=== PATIENT | female | born 1940 | race Caucasian/White ===

== ENCOUNTER → 2023-07-13 06:00 | Outpatient (REF) | payer OTHER, SELFPAY ==
[2023-07-13 16:55] LABS: Urine Albumin Trace (Neg - Trace); Urine Bilirubin Negative (Negative); Urine Character Clear (Clear); Urine Color Yellow; Urine Glucose Negative (Negative); Urine Ketone Negative (Negative); Urine Leukocyte 2+ (Negative); Urine Nitrite Negative (Negative); Urine Occult Blood 4+ (Negative); Urine Urobilinogen Negative (Neg - 1+)
[2023-07-13 17:07] LABS: Urine Squamous Cell 0-2 /LPF (Few)
[2023-07-13 17:09] LABS: Urine Bacteria Moderate (Negative); Urine White Cell >100 /HPF (0-5)
== END ==
LOC: OLABPV 06:00
PROVIDERS: ATTENDING PHYSICIAN Internal Medicine Geriatric Medicine
DX: R31.9 Hematuria, unspecified (principal)
CPT/HCPCS: 81003; 81015

== ENCOUNTER → 2024-04-19 10:44 | Outpatient (REF) | payer OTHER, SELFPAY ==
[2024-04-19 11:35] LABS: Urine Albumin Negative (Neg - Trace); Urine Bilirubin Negative (Negative); Urine Character Clear (Clear); Urine Color Yellow; Urine Glucose Negative (Negative); Urine Ketone Negative (Negative); Urine Leukocyte Negative (Negative); Urine Nitrite Negative (Negative); Urine Occult Blood Negative (Negative); Urine Urobilinogen Negative (Neg - 1+)
[2024-04-19 11:36] LABS: % Basophils 0.5 % (0-2); % Eosinophils 1.9 % (0-6); % Immature Granulocytes 0.3 % (0-0.5); % Monocytes 8.5 % (1.7-9.3); % Neutrophils 61.8 % (42.2-75.2); Absolute Eosinophils 0.1 10^3/uL (0-0.7); Absolute Lymphocytes 1.6 10^3/uL (1.2-3.4); Absolute Monocytes 0.5 10^3/uL (0.1-0.6); Absolute Neutrophils 3.6 10^3/uL (1.4-6.5); Hematocrit 36.2 % (37.0-47.0); Hemoglobin 12.4 g/dL (12.0-16.0); Mean Corp Hgb Conc. 34.3 g/dL (33.0-37.0); Mean Corpuscular Hgb 33.1 pg (27.0-31.0); Mean Corpuscular Volume 96.5 fL (81.0-99.0); Mean Platelet Volume 11.9 fL (7.4-10.4); Nucleated Red Blood Cells % 0 %; Platelet Count 200 10^3/uL (130-400); Red Blood Cell Count 3.75 10^6/uL (4.20-5.40); Red Cell Dist. Width 13.6 % (11.5-14.5); White Blood Cell Count 5.9 10^3/uL (4.8-10.8)
[2024-04-19 12:08] LABS: ALT (SGPT) 22 U/L (0-35); AST (SGOT) 35 U/L (14-36); Albumin 4.9 g/dl (3.5-5.0); Alkaline Phosphatase 57 U/L (38-126); Blood Urea Nitrogen 18 mg/dl (7-17); Calcium 10.1 mg/dl (8.4-10.2); Carbon Dioxide 21 mmol/L (22-30); Chloride 104 mmol/L (98-107); Glucose 102 mg/dl (70-99); HDL Cholesterol 79 mg/dl; LDL Cholesterol, Calculated 93 mg/dl; Potassium 4.4 mmol/L (3.5-5.1); Sodium 142 mmol/L (135-145); Total Bilirubin 0.5 mg/dl (0.2-1.3); Total Cholesterol 185 mg/dl (50-199); Total Protein 7.7 g/dl (6.3-8.2); Triglyceride 65 mg/dl (10-149); Very Low Density Lipoprotein 13 mg/dl (0-30); eGFR > 60.00
[2024-04-19 12:50] LABS: Folate > 20.0 ng/ml (2.76-20); Vitamin B12 > 1000 pg/ml (239-931)
== END ==
LOC: OLABPV 10:44
PROVIDERS: ATTENDING PHYSICIAN Internal Medicine Geriatric Medicine
DX: E78.2 Mixed hyperlipidemia (principal); I10 Essential (primary) hypertension; E55.9 Vitamin D deficiency, unspecified; L82.1 Other seborrheic keratosis; I70.0 Atherosclerosis of aorta; Z13.89 Encounter for screening for other disorder; R10.9 Unspecified abdominal pain; R35.0 Frequency of micturition
CPT/HCPCS: 36415; 80053; 80061; 81003; 82607; 82746; 85025

== ENCOUNTER 2024-05-18 11:34 | Inpatient (IN) | payer OTHER, SELFPAY ==
[2024-05-16] VITALS (8 sets, daily range): BP systolic 130–155; BP diastolic 55–86; BMI 28.9
[2024-05-16 16:11] LABS: % Basophils 0.3 % (0-2); % Immature Granulocytes 0.5 % (0-0.5); % Lymphocytes 6.8 % (20.5-51.1); % Monocytes 1.4 % (1.7-9.3); Absolute Lymphocytes 0.6 10^3/uL (1.2-3.4); Absolute Monocytes 0.1 10^3/uL (0.1-0.6); Absolute Neutrophils 8.1 10^3/uL (1.4-6.5); Hematocrit 37.5 % (37.0-47.0); Hemoglobin 12.9 g/dL (12.0-16.0); Mean Corp Hgb Conc. 34.4 g/dL (33.0-37.0); Mean Corpuscular Hgb 32.7 pg (27.0-31.0); Mean Corpuscular Volume 95.2 fL (81.0-99.0); Mean Platelet Volume 10.8 fL (7.4-10.4); Nucleated Red Blood Cells % 0 %; Platelet Count 184 10^3/uL (130-400); Red Blood Cell Count 3.94 10^6/uL (4.20-5.40); Red Cell Dist. Width 13.2 % (11.5-14.5); White Blood Cell Count 8.9 10^3/uL (4.8-10.8)
[2024-05-16 16:27] LABS: ALT (SGPT) 24 U/L (0-35); AST (SGOT) 36 U/L (14-36); Alkaline Phosphatase 71 U/L (38-126); Blood Urea Nitrogen 21 mg/dl (7-17); Calcium 9.7 mg/dl (8.4-10.2); Carbon Dioxide 20 mmol/L (22-30); Chloride 103 mmol/L (98-107); Glucose 147 mg/dl (70-99); Lipase 99 U/L (23-300); Potassium 3.8 mmol/L (3.5-5.1); Sodium 137 mmol/L (135-145); Total Bilirubin 0.6 mg/dl (0.2-1.3); Total Protein 7.9 g/dl (6.3-8.2); eGFR > 60.00
[2024-05-16] MEDS: NSS 500 IV (16:53)
[2024-05-16] MEDS: ATIVAN 0.5 MG IV (16:54)
[2024-05-16] MEDS: ZOFRAN 4 MG IV (16:54)
--- NOTE | 2024-05-16 17:38 | ED.GENMED ---
History of Present Illness
General
Chief Complaint: Abdominal Symptoms
Source: patient
Exam Limitations: none
Time Seen by Provider: 05/16/24 15:31
Nursing documentation reviewed up to this point in time: agreed with
History of Present Illness
History of Present Illness:
Patient is an 83-year-old female presents to the emergency department with nausea and vomiting secondary to vertigo. Patient started with mild vertigo this morning and became much worse this afternoon. Patient denies any headache, visual or speech
difficulties. Patient states the room is spinning about. Patient had a similar episode in 2018 and it seemed to get better with Antivert. Patient denies any recent illnesses or injuries. Patient denies any chest pain, shortness of breath or
palpitations. Patient denies abdominal pain but admits to nausea and vomiting. Patient denies any diarrhea, melena or hematochezia. Patient denies focal weakness, numbness or paresthesias. Patient denies any decreased hearing, tinnitus.
Past History
Past History
ED Past Medical History: HTN and Other (Kidney stones, vertigo)
Social History
Tobacco: Non-smoker
Review of Systems
Review of Systems
All Other Systems: ROS reviewed and negative except as documented in HPI and ROS
Constitutional: Reports fatigue; Denies fever or chills
EENT: Reports no symptoms
Respiratory: Reports no symptoms
Cardiac: Reports no symptoms
ABD/GI: Reports nausea, vomiting and anorexia; Denies abdominal pain, diarrhea or constipated
: Reports no symptoms
Musculoskeletal: Reports no symptoms; Denies neck pain
Skin: Reports no symptoms
Neurological: Reports dizzy; Denies headache, weakness or numbness
Hematologic/Lymphatic: Reports no symptoms
Phy Exam
Physical Exam
Physical Exam:
Physical Exam
General: Significant distress, alert and appropriate, well nourished, well hydrated
HENT: Normocephalic, supple with no lymphadenopathy, no thyromegaly
Eyes: Clear sclera, conjuctiva without injection, VF's intact, EOMI, no nystagmus
Heart: Regular rhythm and rate. No S3, S4. No murmur. No NVD, bruit
Lungs: No respiratory distress, no stridor, lung sounds clear and equal bilaterally
Abdomen: Soft, nontender, no organomegaly, BS good
Neuro: Alert and oriented x 3, CN II - XII intact, no motor focality, no cerebellar dysfunction
Skin: no rash
Psychiatric: well kept. interactive and cooperative
Extremities: No edema, cyanosis, tenderness
Course
Orders/Labs/Results
Orders:
Orders
05/16/24 Breakfast
Clear Liquid
At Your Request: Full Participation
Does patient need a safe tray?: No
05/16/24 15:15
Electrocardiogram (*1) Urgent
Reason for Study: Abdominal Pain
EKG- Treatment ONCE
05/16/24 16:00
Complete Blood Count/With Diff Urgent
Comprehensive Metabolic Panel Urgent
Lipase Urgent
05/16/24 16:47
0.9% Sodium Chloride 500 ml [Nss] 500 ml IV BOLUS
Lorazepam [Ativan] 0.5 mg IV NOW STA
Ondansetron Injectable [Zofran] 4 mg IV NOW STA
05/16/24 16:48
CT Head W/o Iv Contrast Urgent
Comment:
Reason For Exam: vertigo
05/16/24 19:26
Admit/Transfer Patient As Directed
Co-Sign Provider:
Level of Care: Observation services
Assign to:: Medical/Surgical
Physician / Group: Htay
Diagnosis: Vertigo
05/16/24 19:27
Code Status As Directed
Resuscitation Status: Full Code
PRN Pain Medication Management As Directed
May give lesser potent ordered pain med per pt: Yes
preference::
Protocol:: Medication orders for pain may be administered in a
manner that supports deferring to patient preference
when the pt is:
- Requesting an ordered lesser potent pain medication.
Least to most potent pain medications are defined
as: acetaminophen < NSAID < tramadol < opioids
(morphine, oxycodone, hydromorphone).
- Requesting a lesser dose of the same medication IF
ORDERED.
- Requesting a less intrusive route of administration
if both routes are prescribed by the provider (PO <
IV).
05/16/24 20:32
0.9% Sodium Chloride 1000 ml [Nss] 1,000 ml IV 80 mls/hr
Acetaminophen [Tylenol] 650 mg PO Q4HPRN PRN
Meclizine [Antivert] 25 mg PO Q8HPRN PRN
diazePAM [Valium Injection] 2 mg IV Q6HPRN PRN
05/16/24 20:32
Activity As Directed
Activity Level: Out of Bed-Early Mobility
With Assistance
Advance Diet as Tolerated As Directed
Goal Diet: Regular
Pneumatic Compression Sleeves As Directed
Type: Knee high
Vital Signs As Directed
Frequency: Per unit guidelines
Ot Eval And Treat Routine
Pt Eval And Treat Routine
Activity Level: Out of Bed-Early Mobility
DX Deep Vein Thrombosis Video Routine
Abnormal Lab Results
05/16/24
16:00
RBC 3.94 L 10^6/uL
(4.20-5.40)
MCH 32.7 H pg
(27.0-31.0)
MPV 10.8 H fL
(7.4-10.4)
Absolute Neuts (auto) 8.1 H 10^3/uL
(1.4-6.5)
Absolute Lymphs (auto) 0.6 L 10^3/uL
(1.2-3.4)
Neutrophils % 91.0 H %
(42.2-75.2)
Lymphocytes % 6.8 L %
(20.5-51.1)
Monocytes % 1.4 L %
(1.7-9.3)
Carbon Dioxide 20 L mmol/L
(22-30)
BUN 21 H mg/dl
(7-17)
Creatinine 0.5 L mg/dL
(0.6-1.0)
Glucose 147 H mg/dl
(70-99)
05/16/24 16:00
05/16/24 16:00
Vital Signs
Initial and Last Documented VS:
Initial Vital Signs
Temp Pulse Resp BP Pulse Ox
97.8 F 76 16 155/67 99
05/16/24 15:11 05/16/24 15:11 05/16/24 15:11 05/16/24 15:11 05/16/24 15:11
Last Documented Vital Signs
Temp Pulse Resp BP Pulse Ox
97.9 F 66 16 142/66 100
05/16/24 20:30 05/16/24 20:30 05/16/24 20:30 05/16/24 20:30 05/16/24 20:30
*Radiology
Radiology exam reviewed: radiology read reviewed (nad)
*Pulse Oximetry
Patient hypoxic: no
*EKG
Interpreted by ED Provider?: Yes
EKG Intrepretation Date: 05/16/24
EKG Intrepretation Time: 18:41
Interpretation: abnormal
Comparison EKG: no comparison EKG present
Heart Rate: 71
Rate: normal
Rhythm: sinus
[place]: left axis deviation
Interval: normal NV interval and long QT
QRS Pattern: right bundle branch block
Ischemia: no ischemia
*Building Services Supervisor Interpretation
Rate: normal
Interpretation: normal
Heart Rate: 76
Rhythm: sinus
*Critical Care Note
Total Time (30-74mins, 75-104mins- exclusive of procedures): Not Applicable
Update Note
Update Note:
Patient is feeling better but still mildly dizzy. Labs are unremarkable as is the CT. Patient is unsteady. Patient lives alone. Patient will be admitted.
ED Attending Note
-
Portions of this chart may have been created with voice recognition software.� Occasional wrong word or��sound alike� substitutions may have occurred due to the inherent limitations of voice recognition software.
Discharge Plan
Departure
Patient Disposition: Admit
Date of Disposition: 05/16/24
Time of Disposition: 19:05
Admit to: Med/Surg
Admit to doctor: Hospitalist
Presentation/result/management discussed w/ accepting MD/DO: Hospitalist
Patient with high blood pressure during this ER visit?: No
Condition: Fair
Covid-19: Not Applicable
Discharge Problem:
Vertigo, Ambulatory dysfunction
Interventions
Interventions:
*Risk Screen - Suicide Last Done: 05/16/24 15:11
*General Assessment Last Done: 05/16/24 15:11
*Neglect/Abuse Screening Last Done: 05/16/24 15:11
ED- Fall Risk Assessment Last Done: 05/16/24 20:39
*ED COVID-19 Vaccine History Last Done: 05/16/24 15:11
*Nursing Disposition Last Done: 05/16/24 20:39
ZI-Refotp-Vezfgjtkps Assessment Last Done: 05/16/24 15:58
Discharge Date and Time
Discharge Date/Time: 05/16/24 20:40
--- NOTE | 2024-05-16 19:25 | HPS.HSE ---
Family Physician
-
Family Physician: Anthony Hardwick
Chief Complaint
-
Vertigo
History of Present Illness
Patient is an 83 y/o female past medical history of hypertension, and hyperlipidemia who presents with vertigo. Patient reports she was feeling a little off last week, for which she took a dose of meclizine and symptoms resolved. Today after her
taking her usual morning medications she started feeling a little off again. She took meclizine, but states it did not help this time and symptoms continued to worsen over the coarse of the day. She describes a spinning sensation that is worse
with movement and now is to the point she can not open her eyes without feeling dizzy. She reports associated nausea and vomiting. She reports requiring hospitalization for severe vertigo one other time several years ago.
Medical History
Past Medical History
Past Medical History: Reports Other
Additional Past Medical History:
Essential Hypertension
Hyperlipidemia
Nephrolithiasis
Past Surgical History: Reports None
Social History
Tobacco: Non-smoker
Alcohol: Occasional
Living: Alone (Independent at [facility])
Family History
Family History: Not pertinent
Allergies / Home Medications
Allergies reflects when Allergies were last updated in flux - [facility].
Home Medications with original date entered in flux - [facility]
Allergy/Medication List:
Allergies
Allergy/AdvReac Type Severity Reaction Status Date / Time
No Known Allergies Allergy Unverified 05/16/24 15:58
Home Medications
atorvastatin 10 mg tablet 10 mg PO DAILY 05/16/24
meclizine 12.5 mg tablet 12.5 mg PO DIRECTED PRN dizziness 05/16/24
nifedipine 30 mg tablet,extended release 30 mg PO DAILY 05/16/24
Review of Systems
-
A 12 point ROS was completed and negative except as noted: Yes
Constitutional: Denies Fever or Chills
EENT: Reports Other (No tinnitus or changes in hearing); Denies Sore Throat or Runny Nose
Respiratory: Denies Cough or Trouble Breathing
Physical Exam
Vital Signs
Vital Signs
Temp Pulse Resp BP Pulse Ox
97.8 F 71 16 131/56 97
05/16/24 15:11 05/16/24 18:17 05/16/24 16:00 05/16/24 18:17 05/16/24 18:17
Physical Exam
General: Well Developed, Well Nourished and Other (Kept eyes close during my evaluation due to symptoms)
HEENT: NormoCephalic, Atraumatic and Other (Horizontal nystagmus)
Respiratory: Clear and Non Labored Respirations
Cardiac: S1/S2 and Regular Rhythm
GI: Soft and Non Tender
Musculoskeletal: No Clubbing, No Cyanosis and No Edema
Skin: Warm and Dry
Neuro: Awake, Alert, Oriented and Nonfocal/grossly intact
Psych: Calm
Laboratory Results
-
05/16/24 16:00
05/16/24 16:00
Laboratory Results
Total Bilirubin 0.6 mg/dl (0.2-1.3) 05/16/24 16:00
AST 36 U/L (14-36) 05/16/24 16:00
ALT 24 U/L (0-35) 05/16/24 16:00
Alkaline Phosphatase 71 U/L (38-126) 05/16/24 16:00
Lipase 99 U/L (23-300) 05/16/24 16:00
Data Reviewed
-
CT Scan: Report Reviewed by me
Lab Data: Labs Reviewed by me
Impression/Plan
-
Intractable Vertigo, suspect BPPV
-Consult PT/OT for vestibular therapy
-Continue meclizine prn mild/moderate vertigo, and Valium for severe vertigo
Essential Hypertension
-Continue nifedipine with hold parameters
Hyperlipidemia
-Continue atorvastatin
DVT proph: SCDs
Code Status: Full Code
--- NOTE | 2024-05-16 19:32 | W.PN.UPDATE ---
Update Note
Progress Note Update
This note serves as an addendum to the H&P by sap crm developer SARAI Tiffanie ALLEN
HPI
83M Non smoker HX HTN , remote HX Vertigo ( 2018) seen at ER:
- acute onset of mild vertigo this morning and became much worse this afternoon.
- report the room is spinning about
- associated with N/ V
- denies any headache, visual or speech difficulties. .
HX similar episode in 2018 and it seemed to get better with Antivert.
Denies any recent illnesses or injuries.
Denies any chest pain, shortness of breath or palpitations.
Denies focal weakness, numbness or paresthesias. Patient denies any decreased hearing, tinnitus.
PHX
Vital Signs
Temp Pulse Resp BP Pulse Ox
97.8 F 71 16 131/56 97
05/16/24 15:11 05/16/24 18:17 05/16/24 16:00 05/16/24 18:17 05/16/24 18:17
PE
Gen: Significant distress but alert and appropriate
HEENT: anicteric , symmetric face, nl speech, non sustained weak horizontal nystagmus especially towards Lt latweral gaze . No diplopia
Neck: supple , no bruit
Lungs: CTA
Cor: RRR S1 S2 No murmur
Abdomen: Soft, nontender
SEISMIC PROSPECTING SUPERVISOR: AAO3 no motor focality, no cerebellar dysfunction
MS: no edema
Psych:
Abnormal Lab
05/16/24
16:00
RBC 3.94 L
MCH 32.7 H
MPV 10.8 H
Absolute Neuts (auto) 8.1 H
Absolute Lymphs (auto) 0.6 L
Neutrophils % 91.0 H
Lymphocytes % 6.8 L
Monocytes % 1.4 L
Carbon Dioxide 20 L
BUN 21 H
Creatinine 0.5 L
Glucose 147 H
Unremarkable CBC
CO2 20
BUN 21
nl Cr
EKG
NORMAL SINUS RHYTHM
RSR' OR QR PATTERN IN V1 SUGGESTS RIGHT VENTRICULAR CONDUCTION DELAY
MINIMAL VOLTAGE CRITERIA FOR LVH, MAY BE NORMAL VARIANT ( R in aVL )
NONSPECIFIC T WAVE ABNORMALITY
PROLONGED QT
ABNORMAL ECG
NO PREVIOUS ECGS AVAILABLE
HCT: No acute intracranial abnormality noted
ASSESSMENT & PLAN
Abrupt onset of Vertigo and N/V : Suspect BPPV
Mon sustained weak horizontal nystagmus especially towards Lt lateral gaze . No diplopia
Slowly improving with IV Ativan and Zofram
Associated with acute ambulatory dysfunction
- supportive care PRN Meclizine for mild symptoms or low dose Valium for servere
- Fall precaution
- IVF
- PT/OT for vestibular therapy
Benign HTN
- cont OP Meds
HLD on statin
DVT Px: SCD
Full code
Obs MS
[2024-05-16] MEDS: NSS 1000 IV (21:20)
--- NOTE | 2024-05-16 22:00 | PTCARENOTE ---
pt arrived from ED via stretcher, pt was pulled over from stretcher to bed d/t feeling too dizzy to ambulate. Pt AAOx3, Fluids (NS) started, vitals obtained and stable, oriented to room and call zambrano within reach. Will continue to monitor.
[2024-05-17 06:00] VITALS: BMI 29.2
--- NOTE | 2024-05-17 07:18 | CON.NEURO ---
Consultation
Order
Date of Consultation: 05/17/24
Requesting Provider: Foster Cuello MD
Reason for Consult: dizziness
Neurology Consultation Note.
HPI: This is an 83-year-old woman who presented to [facility] on 05/16/2024 with dizziness. According to the patient she developed intermittent vertigo, worse with movements associated with nausea, dry heaving and imbalance several
days ago. 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 She reports taking meclizine after her symptoms started but experienced no improvement, deciding to seek medical attention.
The patient is unsure of the exact trigger for the current vertigo episode but mentions that she got dressed, which involved moving and bending over. No reports of diplopia, dysarthria, weakness or sensory changes, tinnitus, fever, ear pain or head
trauma. The patient admits to mild cold cephalic pain. She has not eaten since yesterday morning.
ER VS: 155/67, 76, afebrile
EKG: NSR, QTc Int : 508 ms
PDMP: No recently prescribed medication
Labs: Glucose�147, normal WBCs, platelets, vitamin B12>1000, folate >20,
CT head wo contrast-mild subcortical, deep, and periventricular white matter low-attenuation
PMH: BPPV, HTN, DLP, nephrolithiasis, vitamin D deficiency, osteopenia
PSH: bilateral cataract extraction, tubal ligation, cystoscopy
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
FH: Father in his 80s from gastric cancer, mother in her 80s from coronary artery disease.
All:NKDA
ROS:Constitutional: Negative. Negative for chills, fever and unexpected weight change.
HENT: Positive for vertigo, chronic hearing impairment.
Eyes: Negative. Negative for photophobia, pain and visual disturbance.
Respiratory: Negative for cough, choking and shortness of breath.
Cardiovascular: Negative for chest pain, palpitations and leg swelling.
Gastrointestinal: Positive for nausea, vomiting
Endocrine: Negative. Negative for cold intolerance.
Genitourinary: Negative for dysuria, flank pain and urgency.
Musculoskeletal: Negative for back pain, gait problem, neck pain and neck stiffness.
Skin: Negative for rash.
Allergic/Immunologic: Negative. Negative for immunocompromised state.
Neurological: Positive for imbalance, hand tremor.
Psychiatric/Behavioral: Negative for behavioral problems, confusion and hallucinations.
General: Well developed. In no acute distress.
Cardio: Regular rate and rhythm without murmur. Extremities are without cyanosis or edema.
Neuro:
Mental Status: Alert, oriented to person, place, and date. Normal attention and recall. Good fund of knowledge. Follows complex requests across the midline. Comprehension, naming, and repetition intact.
Cranial Nerves: .Pupils are equally round, surgical EOMs full. Visual gomez full to confrontation. No ptosis. No nystagmus. V1-V3 intact to light touch and pinprick bilaterally, symmetric. Face symmetric. Impaired hearing AU. The palate
elevated well. SCMs and traps 5/5. Tongue midline. No dysarthria.
Motor: Normal bulk and tone. No pronator or arm drift. Strength 5/5 throughout. No clonus.
Reflexes: 2+ throughout the upper extremities and knees. Plantar responses flexor bilaterally.
Sensory: Normal vibration and JPS at the toes
Coordination: No dysmetria, L>R intention kinetic hand tremor
Gait: deferred
BL pes cavus
Assessment and Plan:
I. BPPV
II. HTN
III. Bilateral intention kinetic hand tremor
-Telemetry monitoring
-PT
-Meclizine 25 mg Q8h PRN
-Diazepam 1-2 mg IV Q8h PRN
-Brain MRI wo betty
-Please check TFTs
-ENT consult(can be done as OP)
-DVT prophylaxis
I personally reviewed all radiology and labs along with past medical records pertinent to current medical problems. Total time spent in patient care is 60 minutes.
Thank you for allowing us to participate in the care of this patient. We will continue to follow. Please do not hesitate to contact us with any questions or concerns.
Subjective/Objective
Subjective Data
Date of Service: May 17, 2024
Objective Data
Vital Signs
Temp Pulse Resp BP Pulse Ox
36.5 C 68 18 132/56 97
05/16/24 23:00 05/16/24 23:00 05/16/24 23:00 05/16/24 23:00 05/16/24 23:00
Lab Results
05/16/24 16:00
05/16/24 16:00
Sodium 137 mmol/L (135-145) 05/16/24 16:00
Potassium 3.8 mmol/L (3.5-5.1) 05/16/24 16:00
BUN 21 mg/dl (7-17) H 05/16/24 16:00
Glucose 147 mg/dl (70-99) H 05/16/24 16:00
Calcium 9.7 mg/dl (8.4-10.2) 05/16/24 16:00
Patient Allergies
No Known Allergies Allergy (Unverified 05/16/24 15:58)
Medications
-
Active Medications
Generic Name Dose Route Start Last Admin
Trade Name Freq PRN Reason Stop Dose Admin
Acetaminophen 650 mg 05/16/24 20:32
Acetaminophen 325 Mg Tablet PO 06/13/24 20:31
Q4HPRN PRN
mild pain/ fever>100.5F
Atorvastatin Calcium 10 mg 05/17/24 08:00
Atorvastatin (Lipitor) 10 Mg Tablet PO 06/14/24 07:59
DAILY ANA
Diazepam 2 mg 05/16/24 20:32
Diazepam 10 Mg/2 Ml Inj IV 06/13/24 20:31
Q6HPRN PRN
severe vertigo
Sodium Chloride 1,000 mls @ 80 mls/hr 05/16/24 20:32 05/16/24 21:20
Nss IV 05/17/24 09:01 1,000 mls
.[id number] ANA Administration
Meclizine HCl 25 mg 05/16/24 20:32
Meclizine 25 Mg Tablet PO 06/13/24 20:31
Q8HPRN PRN
mild/moderate vertigo
Nifedipine 30 mg 05/17/24 08:00
Nifedipine 30 Mg Extended Release Tablet PO 06/14/24 07:59
DAILY ANA
Sodium Chloride 0 flush 05/16/24 21:00
Sodium Chloride 0.9% (Flush) Syringe IV 06/13/24 20:59
PER PROTOCOL ANA
Home Medications
�Medication �Instructions �Recorded
atorvastatin 10 mg tablet 10 mg PO DAILY 05/16/24
meclizine 12.5 mg tablet 12.5 mg PO DIRECTED PRN 05/16/24
dizziness
nifedipine 30 mg tablet,extended 30 mg PO DAILY 05/16/24
release
Vital Signs and Labs
-
Vital Signs and Labs:
Vital Signs
Temp Pulse Resp BP Pulse Ox
36.5 C 68 18 132/56 97
05/16/24 23:00 05/16/24 23:00 05/16/24 23:00 05/16/24 23:00 05/16/24 23:00
Lab Results
05/16/24 16:00
05/16/24 16:00
Sodium 137 mmol/L (135-145) 05/16/24 16:00
Potassium 3.8 mmol/L (3.5-5.1) 05/16/24 16:00
BUN 21 mg/dl (7-17) H 05/16/24 16:00
Glucose 147 mg/dl (70-99) H 05/16/24 16:00
Calcium 9.7 mg/dl (8.4-10.2) 05/16/24 16:00
Medications
-
Medications:
Generic Name Dose Route Start Last Admin
Trade Name Freq PRN Reason Stop Dose Admin
Acetaminophen 650 mg 05/16/24 20:32
Acetaminophen 325 Mg Tablet PO 06/13/24 20:31
Q4HPRN PRN
mild pain/ fever>100.5F
Atorvastatin Calcium 10 mg 05/17/24 08:00
Atorvastatin (Lipitor) 10 Mg Tablet PO 06/14/24 07:59
DAILY ANA
Diazepam 2 mg 05/16/24 20:32
Diazepam 10 Mg/2 Ml Inj IV 06/13/24 20:31
Q6HPRN PRN
severe vertigo
Sodium Chloride 1,000 mls @ 80 mls/hr 05/16/24 20:32 05/16/24 21:20
Nss IV 05/17/24 09:01 1,000 mls
.[id number] ANA Administration
Meclizine HCl 25 mg 05/16/24 20:32
Meclizine 25 Mg Tablet PO 06/13/24 20:31
Q8HPRN PRN
mild/moderate vertigo
Nifedipine 30 mg 05/17/24 08:00
Nifedipine 30 Mg Extended Release Tablet PO 06/14/24 07:59
DAILY ANA
Sodium Chloride 0 flush 05/16/24 21:00
Sodium Chloride 0.9% (Flush) Syringe IV 06/13/24 20:59
PER PROTOCOL ANA
Home Medications
-
Home Medications
atorvastatin 10 mg tablet 10 mg PO DAILY 05/16/24
meclizine 12.5 mg tablet 12.5 mg PO DIRECTED PRN dizziness 12/09/24
nifedipine 30 mg tablet,extended release 30 mg PO DAILY 05/16/24
[2024-05-17 07:48] VITALS: BP 137/64
[2024-05-17] MEDS: PROCARDIA XL (EXTENDED RELEASE) 30 MG PO (08:15)
[2024-05-17] MEDS: LIPITOR 10 MG PO (08:15)
[2024-05-17] MEDS: ANTIVERT 25 MG PO ×2 (08:24→21:59)
[2024-05-17 09:50] VITALS: BP 143/67; BP 172/70; PULSE 71; O2SAT 99
--- NOTE | 2024-05-17 10:02 | W.PN.HOSP.TC ---
Today's Communication/Plan
-
Brain MRI
Assessment / Plan
Assessment / Plan
Physical Exam
General: Well Developed, Well Nourished and Other (Kept eyes close during my evaluation due to symptoms)
HEENT: NormoCephalic, Atraumatic and Other (Horizontal nystagmus)
Respiratory: Clear and Non Labored Respirations
Cardiac: S1/S2 and Regular Rhythm
GI: Soft and Non Tender
Musculoskeletal: No Clubbing, No Cyanosis and No Edema
Skin: Warm and Dry
Neuro: Awake, Alert, Oriented and Nonfocal/grossly intact
Psych: Calm
# Intractable Vertigo, suspect BPPV
Less dizzy,
-Brain MRI
- consult neurology
-Consulted PT/OT for vestibular therapy
-Continue meclizine prn mild/moderate vertigo, and Valium for severe vertigo
#Essential Hypertension
-Continue nifedipine with hold parameters
#Hyperlipidemia
-Continue atorvastatin
DVT proph: SCDs, added SQ Heparin.
Code Status: Full Code
Total time spent to see the patient on the floor, examine the patient, review data and lab results, discuss treatment plan with patient, nursing staff around 55 minutes.
Anticipated Discharge: 24 - 48 hours
Subjective/Interval History
-
Date of Service: May 17, 2024
She feels less dizzy this morning
No headache
No blurred vision
Objective Data
-
Vital Signs:
Vital Signs
Temp Pulse Resp BP Pulse Ox
97.6 F 78 16 137/64 95
05/17/24 07:48 05/17/24 07:48 05/17/24 07:48 05/17/24 08:15 05/17/24 07:48
I&O
05/16/24 05/17/24 05/18/24
06:59 06:59 06:59
Intake Total 480 / 480
Balance 480 / 480
[2024-05-17 11:43] LABS: TSH Reflex To Free T4 2.98 uIU/ml (0.47-4.68)
[2024-05-17] MEDS: TYLENOL 650 MG PO (12:23)
[2024-05-17 14:54] VITALS: BP 136/67; PULSE 72; O2SAT 98
[2024-05-17 15:01] VITALS: BP 136/87
[2024-05-17] MEDS: NSS (PRESERVATIVE FREE) 0.5 ML IV (15:43)
[2024-05-17] MEDS: ATIVAN 1 MG IV (15:43)
--- NOTE | 2024-05-17 17:28 | CM ---
Alert awake oriented patient who lives [facility]. She is independent in driving and all activates of daily living.She has no adaptive devices.Offered Vn she declined need.WILSON expained to pt . She declined to sign WILSON. WILSON
copy on chart.
No VN in past . No SNF hx
Pharmacy [facility]
PCP Dr Hardwick
PLAN Home with no needs
[2024-05-17 23:47] VITALS: BP 120/50
[2024-05-18 08:23] VITALS: BP 107/75
[2024-05-18] MEDS: LIPITOR 10 MG PO (09:12)
[2024-05-18] MEDS: PROCARDIA XL (EXTENDED RELEASE) 30 MG PO (09:12)
[2024-05-18] MEDS: TYLENOL 650 MG PO (09:22)
[2024-05-18 09:54] VITALS: BP 162/70; BP 163/78; PULSE 69; O2SAT 93
--- NOTE | 2024-05-18 11:36 | W.PN.HOSP.TC ---
Today's Communication/Plan
-
Follow with neurology and neurosurgery recommendations
Add SQ heparin, change meclizine to BID
Assessment / Plan
Assessment / Plan
Physical Exam
General: Well Developed, Well Nourished and Other (Kept eyes close during my evaluation due to symptoms)
HEENT: NormoCephalic, Atraumatic and Other (Horizontal nystagmus)
Respiratory: Clear and Non Labored Respirations
Cardiac: S1/S2 and Regular Rhythm
GI: Soft and Non Tender
Musculoskeletal: No Clubbing, No Cyanosis and No Edema
Skin: Warm and Dry
Neuro: Awake, Alert, Oriented and Nonfocal/grossly intact
Psych: Calm
# Intractable Vertigo, suspect BPPV
Less dizzy,
-Brain MRI showed volume loss and mild to moderate white matter leukoaraiosis in the frontal and parietal lobes. 1.9 cm meningioma arising superiorly from the left tentorium cerebelli causing mild mass effect on the inferior left occipital lobe.
- consulted neurology
Consulted neurosurgery.
-Consulted PT/OT for vestibular therapy
-Continue meclizine prn mild/moderate vertigo, and Valium for severe vertigo
#Essential Hypertension
-Continue nifedipine with hold parameters
#Hyperlipidemia
-Continue atorvastatin
DVT proph: SCDs, added SQ Heparin.
Code Status: Full Code
Total time spent to see the patient on the floor, examine the patient, review data and lab results, discuss treatment plan with patient, nursing staff around 55 minutes.
Anticipated Discharge: Within 24 hours
Subjective/Interval History
-
Date of Service: May 18, 2024
No chest pain
No sob
No fevers
Objective Data
-
Vital Signs:
Vital Signs
Temp Pulse Resp BP Pulse Ox
97.9 F 85 16 131/58 96
05/18/24 08:23 05/18/24 09:12 05/18/24 08:23 05/18/24 09:12 05/18/24 08:23
I&O
05/17/24 05/18/24 05/19/24
06:59 06:59 06:59
Intake Total 1440 / 1440
Output Total 2150 / 2150
Balance -710 / -710
[2024-05-18] MEDS: ANTIVERT 25 MG PO ×2 (12:19→19:41)
--- NOTE | 2024-05-18 12:22 | CON.NS ---
Consultation
-
Date/Time Consultation Performed: 05/18/2024; 12:45
Performing Provider: Yesenia
Chief Complaint
History of Present Illness
This is a neurosurgical consultation on 83-year-old female with a current active medical issues including hypertension, hyperlipidemia, who presented with acute onset of vertigo. It is noted that the patient reported the symptoms have been going on
for the past week. She did take meclizine, the symptoms resolved. On the a.m. of 05/16/2024, patient had return of vertigo, and the meclizine did not help. Therefore, she presents to the emergency room. She also reported nausea and vomiting. She
had a noncontrast head CT, and a subsequent brain MRI that demonstrated area of calcification along the left posterior tentorium, suspicious for possible calcified meningioma. Patient was also seen and evaluated by neurology. It is noted the
patient has a longstanding history of BPPV.
Patient had a brain MRI that was done, which revealed a likely meningioma, although contrast was not given. Neurosurgery consulted regarding 1.9 cm likely calcified meningioma.
Patient seen examined. Son is at bedside. Another son was conferenced in via telephone. Patient reports that she has had longstanding history of headaches, and vertigo. This episode is no different than the previous ones, but did not respond to
the meclizine. Symptoms are improved today, compared with admission.
Review of Systems
-
10 point review of systems including constitutional, ENT, cardiovascular, respiratory, GI, , hematologic, endocrinologic, psychiatric, neurologic, was performed, and was negative, except for stated in HPI.
Medication and Allergies
Home Medications
Home Medications
�Medication �Instructions �Recorded
atorvastatin 10 mg tablet 10 mg PO DAILY High Cholesterol 05/16/24
meclizine 12.5 mg tablet 12.5 mg PO DIRECTED PRN 05/16/24
dizziness
nifedipine 30 mg tablet,extended 30 mg PO DAILY Blood Pressure 05/16/24
release
Allergies
Allergies
Allergy/AdvReac Type Severity Reaction Status Date / Time
No Known Allergies Allergy Unverified 05/16/24 15:58
Physical Exam
-
Exam:
Awake, alert, conversant.
Pupils are equal reactive to light
Extract movements are full without nystagmus
Face symmetric, tongue is midline.
Hearing symmetric bilaterally.
Motor: 5/5 strength evaluate upper extremities, lower EXTR with no evidence of drift.
Finger-nose testing is normal.
Head is normocephalic atraumatic
Neck is supple
Breathing nonlabored
Abdomen is soft
Cardiac: Regular rate and rhythm
Extremities are warm
Noncontrast brain MRI performed on 05/17/2024 approximate 4:15 PM was reviewed. Images reversely viewed interpreted by me. There is evidence of an isointense lesion arising from the left tentorium which appears to be 1.9 cm in transverse diameter,
and approximately 6 mm in AP diameter. There is no obvious evidence of FLAIR signal hyperintensity within the occipital lobe to suggest vasogenic edema. This correlates with a calcified lesion that was noted on noncontrast head CT performed on
05/16/2024 at approximately 5:50 PM.
Problems
-
Problem Status Onset Code
Ambulatory dysfunction R26.2
Vertigo R42
Assessment / Plan
-
This is an 83-year-old female who presents with acute onset of BPPV/vertigo like symptoms. She has a past medical history significant for vertigo. She had a noncontrast head CT, as well as brain MRI, without contrast which reveals incidental left
tentorial calcified meningioma. There is no obvious evidence of significant brain compression, or vasogenic edema. This is NOT the cause of patient's vertigo.
No urgent neurosurgical intervention recommended for this lesion at present time.
Patient follow-up with a brain MRI with and without contrast in approximately 3 to 6 months.
Discussed extensively with patient, patient's son, and other son on telephone at bedside.
--- NOTE | 2024-05-18 12:36 | W.PN.NEURO.1 ---
Today's Communication / Plan
-
.
Subjective/Objective
Subjective Data
Date of Service: May 18, 2024
Neurology Follow Up Note.
Ms. Villar endorses a mild holocephalic non positional headache. No reports of photophobia, phonophobia. She is able to tolerate p.o. and admits to intermittent disequilibrium with ambulation. No reports of ear pain, tinnitus, change in vision.
Brain MRI wo betty showed no acute infarcts and 1.9 cm meningioma arising superiorly from the left tentorium cerebelli causing mild mass effect on the inferior left occipital lobe.
TFTs-normal
PMH: BPPV, HTN, DLP, nephrolithiasis, vitamin D deficiency, osteopenia
PSH: bilateral cataract extraction, tubal ligation, cystoscopy
SH: Lives in independent living, , retired [employer], no history of excessive alcohol use; has 3 children, independent in ADLs
FH: Father in his 80s from gastric cancer, mother in her 80s from coronary artery disease.
All: NKDA
ROS:Constitutional: Negative. Negative for chills, fever and unexpected weight change.
HENT: Positive for vertigo, chronic hearing impairment.
Eyes: Negative. Negative for photophobia, pain and visual disturbance.
Respiratory: Negative for cough, choking and shortness of breath.
Cardiovascular: Negative for chest pain, palpitations and leg swelling.
Gastrointestinal: neg for nausea
Endocrine: Negative. Negative for cold intolerance.
Genitourinary: Negative for dysuria, flank pain and urgency.
Musculoskeletal: Negative for back pain, gait problem, neck pain and neck stiffness.
Skin: Negative for rash.
Allergic/Immunologic: Negative. Negative for immunocompromised state.
Neurological: Positive for imbalance, hand tremor.
Psychiatric/Behavioral: Negative for behavioral problems, confusion and hallucinations.
General: Well developed. In no acute distress.
Cardio: Regular rate and rhythm without murmur. Extremities are without cyanosis or edema.
Neuro:
Mental Status: Alert, oriented to person, place, and date. Normal attention and recall. Good fund of knowledge. Follows complex requests across the midline. Comprehension, naming, and repetition intact.
Cranial Nerves: .Pupils are equally round, surgical. EOMs full. Visual gomez full to confrontation. No ptosis. No nystagmus. V1-V3 intact to light touch and pinprick bilaterally, symmetric. Face symmetric. Impaired hearing AU. The palate
elevated well. SCMs and traps 5/5. Tongue midline. No dysarthria.
Motor: Normal bulk and tone. No pronator or arm drift. Strength 5/5 throughout. No clonus.
Reflexes: 2+ throughout the upper extremities and knees. Plantar responses flexor bilaterally.
Sensory: Normal vibration and JPS at the toes
Coordination: No dysmetria, L>R intention kinetic hand tremor
Gait: deferred
BL pes cavus
Assessment and Plan:
I. BPPV
II. Left tentorial meningioma with some mild mass effect
III. Bilateral intention kinetic hand tremor(not disabling as per the patient)
-Please check orthostatic vital signs
-PT
-Continue meclizine 25 mg Q8h and Diazepam 1-2 mg IV Q8h PRN
-Repeat brain MRI with and without gadolinium in 6 months
-Outpatient neurosurgery consult
-ENT consult(can be done as OP)
-CTA head
-DVT prophylaxis
-OP neurology follow up in 1-2 weeks
I personally reviewed all radiology and labs along with past medical records pertinent to current medical problems. Total time spent in patient care is 35 minutes.
Thank you for allowing us to participate in the care of this patient. We will continue to follow. Please do not hesitate to contact us with any questions or concerns
Objective Data
Vital Signs
Temp Pulse Resp BP Pulse Ox
36.6 C 85 16 131/58 96
05/18/24 08:23 05/18/24 09:12 05/18/24 08:23 05/18/24 09:12 05/18/24 08:23
Lab Results
05/16/24 16:00
05/16/24 16:00
Sodium 137 mmol/L (135-145) 05/16/24 16:00
Potassium 3.8 mmol/L (3.5-5.1) 05/16/24 16:00
BUN 21 mg/dl (7-17) H 05/16/24 16:00
Glucose 147 mg/dl (70-99) H 05/16/24 16:00
Calcium 9.7 mg/dl (8.4-10.2) 05/16/24 16:00
Patient Allergies
No Known Allergies Allergy (Unverified 05/16/24 15:58)
Vital Signs and Labs
-
Vital Signs and Labs:
Vital Signs
Temp Pulse Resp BP Pulse Ox
36.6 C 85 16 131/58 96
05/18/24 08:23 05/18/24 09:12 05/18/24 08:23 05/18/24 09:12 05/18/24 08:23
Lab Results
05/16/24 16:00
05/16/24 16:00
Sodium 137 mmol/L (135-145) 05/16/24 16:00
Potassium 3.8 mmol/L (3.5-5.1) 05/16/24 16:00
BUN 21 mg/dl (7-17) H 05/16/24 16:00
Glucose 147 mg/dl (70-99) H 05/16/24 16:00
Calcium 9.7 mg/dl (8.4-10.2) 05/16/24 16:00
Medications
-
Medications:
Generic Name Dose Route Start Last Admin
Trade Name Freq PRN Reason Stop Dose Admin
Acetaminophen 650 mg 05/16/24 20:32 05/18/24 09:22
Acetaminophen 325 Mg Tablet PO 06/13/24 20:31 650 mg
Q4HPRN PRN Administration
mild pain/ fever>100.5F
Atorvastatin Calcium 10 mg 05/17/24 08:00 05/18/24 09:12
Atorvastatin (Lipitor) 10 Mg Tablet PO 06/14/24 07:59 10 mg
DAILY ANA Administration
Diazepam 2 mg 05/16/24 20:32
Diazepam 10 Mg/2 Ml Inj IV 06/13/24 20:31
Q6HPRN PRN
severe vertigo
Lorazepam 1 mg 05/17/24 07:39 05/17/24 15:43
Lorazepam 2 Mg/Ml Vial IV 06/14/24 07:38 1 mg
DAILYPRN PRN Administration
MRI
Meclizine HCl 25 mg 05/16/24 20:32 05/17/24 21:59
Meclizine 25 Mg Tablet PO 06/13/24 20:31 25 mg
Q8HPRN PRN Administration
mild/moderate vertigo
Meclizine HCl 25 mg 05/18/24 20:00
Meclizine 25 Mg Tablet PO 06/15/24 19:59
BID ANA
Nifedipine 30 mg 05/17/24 08:00 05/18/24 09:12
Nifedipine 30 Mg Extended Release Tablet PO 06/14/24 07:59 30 mg
DAILY ANA Administration
Sodium Chloride 0 flush 05/16/24 21:00
Sodium Chloride 0.9% (Flush) Syringe IV 06/13/24 20:59
PER PROTOCOL ANA
Sodium Chloride 0.5 ml 05/17/24 07:45 05/17/24 15:43
Nss (Pf) 10 Ml Vial For Ativan 1 Mg Dose IV 06/14/24 07:44 0.5 ml
DAILYPRN PRN Administration
IV LORAZEPAM DILUTION
Home Medications
-
Home Medications
atorvastatin 10 mg tablet 10 mg PO DAILY High Cholesterol 12/09/24
meclizine 12.5 mg tablet 12.5 mg PO DIRECTED PRN dizziness 05/16/24
nifedipine 30 mg tablet,extended release 30 mg PO DAILY Blood Pressure 05/16/24
[2024-05-18 14:14] LABS: D-Dimer 0.53 ug/mlFEU (0.00-0.50)
[2024-05-18 14:32] LABS: Erythrocyte Sed Rate 19 mm/hour (0-20)
[2024-05-18 15:12] LABS: Magnesium 2.2 mg/dl (1.6-2.3)
[2024-05-18 15:15] VITALS: BP 124/57
[2024-05-18] MEDS: HEPARIN 5000 UNITS SC (19:42)
[2024-05-18 23:25] VITALS: BP 127/58
[2024-05-19 07:00] VITALS: BP 129/62
--- NOTE | 2024-05-19 08:54 | CM ---
Addendum entered by Brandie Brooks RN 05/19/24 12:48:
Pt will set up Vestibular therapy out pt. Script given Walker given by PT [place] provided to PT for walker
Friend will drive her home.
Original Note:
Ongoing diagnostics testing.
Neurology involved.
Pt changed to Inpatient IMM given explained .IMM on chart.
Cm will continue to assist and assess for dc needs.
PLAN Home no anticipated needs
[2024-05-19] MEDS: ANTIVERT 25 MG PO (09:54)
[2024-05-19] MEDS: LIPITOR 10 MG PO (09:54)
[2024-05-19] MEDS: HEPARIN 5000 UNITS SC (09:55)
[2024-05-19] MEDS: PROCARDIA XL (EXTENDED RELEASE) 30 MG PO (09:56)
[2024-05-19 10:24] VITALS: BP 130/76; BP 147/68; BP 149/76; BP 152/88; PULSE 75; O2SAT 96
--- NOTE | 2024-05-19 10:30 | W.PN.HOSP.TC ---
Today's Communication/Plan
-
Discharge
Spoke with family, she will need a walker and home health servcies
Assessment / Plan
Assessment / Plan
Physical Exam
General: Well Developed, Well Nourished and Other (Kept eyes close during my evaluation due to symptoms)
HEENT: NormoCephalic, Atraumatic and Other (Horizontal nystagmus)
Respiratory: Clear and Non Labored Respirations
Cardiac: S1/S2 and Regular Rhythm
GI: Soft and Non Tender
Musculoskeletal: No Clubbing, No Cyanosis and No Edema
Skin: Warm and Dry
Neuro: Awake, Alert, Oriented and Nonfocal/grossly intact
Psych: Calm
# Intractable Vertigo, suspect BPPV Vs vestibular neuritis
She feels better, not dizzy, she would like to go home
-Brain MRI showed volume loss and mild to moderate white matter leukoaraiosis in the frontal and parietal lobes. 1.9 cm meningioma arising superiorly from the left tentorium cerebelli causing mild mass effect on the inferior left occipital lobe.
Seen by neurosurgery, no need for intervention
CTA of head, no thrombosis
seen by neurology and neurosurgery
Normal ESR & CRP
-Consulted PT/OT , ok to go home
-Continue meclizine prn mild/moderate vertigo, and Valium for severe vertigo
#Essential Hypertension
-Continue nifedipine with hold parameters
#Hyperlipidemia
-Continue atorvastatin
DVT proph: SCDs, added SQ Heparin.
Code Status: Full Code
Total discharge time spent to see the patient on the floor, examine the patient, review data and lab results, discuss discharge plan with patient, family, nursing staff around 65 minutes.
Anticipated Discharge: Today
Subjective/Interval History
-
Date of Service: May 19, 2024
She feels better today, not dizzy
Objective Data
-
Vital Signs:
Vital Signs
Temp Pulse Resp BP Pulse Ox
98.2 F 63 18 129/62 96
05/19/24 07:00 05/19/24 07:00 05/19/24 07:00 05/19/24 07:00 05/19/24 07:00
I&O
05/18/24 05/19/24 05/20/24
06:59 06:59 06:59
Intake Total 1440 / 1440 1320 / 1320
Output Total 2150 / 2150
Balance -710 / -710 1320 / 1320
[2024-05-19 13:24] VITALS: BP 117/57
--- NOTE | 2024-05-19 15:37 | W.DCSUMMARY ---
Discharge Summary
Discharge Data
Date of Admission: 05/18/24
Date of Discharge: 05/19/24
-
Pending Results: No
Hospital Course
83 years old female presented with vertigo. Patient had history of vertigo. She started to have exacerbation of dizziness in the last few days. She tried one-time meclizine and that did not help. Patient was admitted to the hospital. Scan of
the head did not show acute findings. She was evaluated by neurologist and recommended supportive care with meclizine. Brain MRI showed volume loss and mild to moderate white matter leukoaraiosis in the frontal and parietal lobes. 1.9 cm
meningioma arising superiorly from the left tentorium cerebelli causing mild mass effect on the inferior left occipital lobe. She was seen by neurosurgery, no need for intervention and recommended follow-up in 3 to 6 months. Patient did not have
blurred vision or headaches. No fever or leukocytosis. Inflammatory marker including ESR and CRP came back normal. Patient started to improve with symptomatic management including meclizine. She was evaluated by physical therapy. Patient was
advised to follow-up with ENT doctor in outpatient setting. She remained hemodynamically stable and was discharged home in a stable condition. Discharge instructions or recommendations were discussed with her family.
Discharge Plan
-
Patient Disposition: Home (Routine Discharge)
Discharge Diagnosis/Procedures: Vertigo
You were seen by neurology and neurosurgery
You will need to follow with neurosurgeyr in 3-6 months for meningioma.
Recommend OP follow up with ENT doctor ( contact given)
Diet: As tolerated
Referrals:
Anthony Hardwick MD [Family Provider] - in one to two weeks
Yamilka Patterson MD [Active] - in one to two months
Tiff Black MD [Active] - in two to four weeks
Prescriptions:
New
meclizine 25 mg Tablet
25 mg PO Q8HPRN PRN (Reason: mild/moderate vertigo) Qty: 10 0RF
Continued
atorvastatin 10 mg Tablet
10 mg PO DAILY
nifedipine 30 mg Tablet Extended Release
30 mg PO DAILY
Discontinued
meclizine 12.5 mg Tablet
12.5 mg PO DIRECTED PRN (Reason: dizziness)
Rx Instructions:
pt just took once
Discharge Orders:
Discharge Patient (As Directed); Ordered 05/19/24
Ordered By: Foster Cuello
Discharge Date and Time
Discharge Date/Time: 05/19/24 14:06
Print Language: UPPER SORBIAN
== END 2024-05-19 14:06 | disposition home or self-care (01) | DRG 149 ==
LOC: 3 WEST ACU 11:34
PROVIDERS: ADMITTING PHYSICIAN Internal Medicine; ATTENDING PHYSICIAN Internal Medicine; CONSULT PHYSICIAN Neurological Surgery; CONSULT PHYSICIAN Psychiatry & Neurology Neurology; EMERGENCY PHYSICIAN Emergency Medicine; FAMILY PHYSICIAN Internal Medicine Geriatric Medicine
DX: H81.10 Benign paroxysmal vertigo, unspecified ear (principal); I10 Essential (primary) hypertension; E78.5 Hyperlipidemia, unspecified; D32.9 Benign neoplasm of meninges, unspecified; Z59.89 Other problems related to housing and economic circumstances
CPT/HCPCS: 70450; 70496; 70551; 80053; 83690; 83735; 84443; 85025; 85379; 85652; 86140; 87070; 93005; 96374; 96375; 97116; 97163; 97166; 97530; 99285; Q9967

== ENCOUNTER → 2024-05-23 10:00 | Outpatient (REF) | payer OTHER, SELFPAY ==
[2024-05-23 17:39] LABS: Urine Albumin Negative (Neg - Trace); Urine Bilirubin Negative (Negative); Urine Character Clear (Clear); Urine Color Yellow; Urine Glucose Negative (Negative); Urine Ketone Negative (Negative); Urine Leukocyte 2+ (Negative); Urine Nitrite Positive (Negative); Urine Occult Blood Negative (Negative); Urine Specific Gravity 1.015 (<1.030); Urine Urobilinogen Negative (Neg - 1+)
[2024-05-23 19:10] LABS: Urine Red Blood Cell 0-2 /HPF (0-2); Urine White Cell >100 /HPF (0-5)
[2024-05-23 19:11] LABS: Urine Bacteria Moderate (Negative)
== END ==
LOC: OLABPV 10:00
PROVIDERS: ATTENDING PHYSICIAN Internal Medicine Geriatric Medicine
DX: R30.0 Dysuria (principal)
CPT/HCPCS: 81003; 81015; 87086; 87088; 87186

== ENCOUNTER → 2024-10-04 10:50 | Outpatient (REF) | payer OTHER, SELFPAY ==
[2024-10-04 12:12] LABS: % Basophils 0.9 % (0-2); % Eosinophils 1.4 % (0-6); % Immature Granulocytes 0.3 % (0-0.5); % Lymphocytes 27.9 % (20.5-51.1); % Monocytes 9.8 % (1.7-9.3); % Neutrophils 59.7 % (42.2-75.2); Absolute Basophils 0.1 10^3/uL (0-0.2); Absolute Eosinophils 0.1 10^3/uL (0-0.7); Absolute Lymphocytes 1.6 10^3/uL (1.2-3.4); Absolute Monocytes 0.6 10^3/uL (0.1-0.6); Absolute Neutrophils 3.4 10^3/uL (1.4-6.5); Hematocrit 37.8 % (37.0-47.0); Hemoglobin 12.3 g/dL (12.0-16.0); Mean Corp Hgb Conc. 32.5 g/dL (33.0-37.0); Mean Corpuscular Hgb 32.8 pg (27.0-31.0); Mean Corpuscular Volume 100.8 fL (81.0-99.0); Mean Platelet Volume 11.1 fL (7.4-10.4); Nucleated Red Blood Cells % 0 %; Platelet Count 216 10^3/uL (130-400); Red Blood Cell Count 3.75 10^6/uL (4.20-5.40); Red Cell Dist. Width 13.5 % (11.5-14.5); White Blood Cell Count 5.7 10^3/uL (4.8-10.8)
[2024-10-04 12:29] LABS: ALT (SGPT) 23 U/L (0-35); AST (SGOT) 31 U/L (14-36); Albumin 4.9 g/dl (3.5-5.0); Alkaline Phosphatase 56 U/L (38-126); Blood Urea Nitrogen 21 mg/dl (7-17); Calcium 9.8 mg/dl (8.4-10.2); Carbon Dioxide 27 mmol/L (22-30); Chloride 106 mmol/L (98-107); Glucose 96 mg/dl (70-99); HDL Cholesterol 75 mg/dl; LDL Cholesterol, Calculated 110 mg/dl; Potassium 4.5 mmol/L (3.5-5.1); Sodium 142 mmol/L (135-145); Total Bilirubin 0.6 mg/dl (0.2-1.3); Total Cholesterol 197 mg/dl (50-199); Total Protein 7.5 g/dl (6.3-8.2); Triglyceride 63 mg/dl (10-149); Very Low Density Lipoprotein 12 mg/dl (0-30); eGFR > 60.00
[2024-10-04 12:39] LABS: Urine Albumin 1+ (Neg - Trace); Urine Bilirubin Negative (Negative); Urine Character Clear (Clear); Urine Color Yellow; Urine Glucose Negative (Negative); Urine Ketone Negative (Negative); Urine Leukocyte 1+ (Negative); Urine Nitrite Negative (Negative); Urine Occult Blood 2+ (Negative); Urine Urobilinogen Negative (Neg - 1+)
[2024-10-04 12:43] LABS: Vitamin D, 25-OH*** 56.7 ng/mL (30-80)
[2024-10-04 13:56] LABS: Urine Amorphous Seen
[2024-10-04 14:06] LABS: Urine Red Blood Cell 0-2 /HPF (0-2)
== END ==
LOC: OLABPV 10:50
PROVIDERS: ATTENDING PHYSICIAN Internal Medicine Geriatric Medicine
DX: D32.9 Benign neoplasm of meninges, unspecified (principal); E78.2 Mixed hyperlipidemia; I10 Essential (primary) hypertension; E55.9 Vitamin D deficiency, unspecified; L82.1 Other seborrheic keratosis; I70.0 Atherosclerosis of aorta; Z13.89 Encounter for screening for other disorder; R10.9 Unspecified abdominal pain; R53.0 Neoplastic (malignant) related fatigue; I34.0 Nonrheumatic mitral (valve) insufficiency; I35.1 Nonrheumatic aortic (valve) insufficiency
CPT/HCPCS: 36415; 80053; 80061; 81003; 81015; 82306; 85025

== ENCOUNTER → 2024-12-22 12:29 | Outpatient (REF) | payer OTHER, SELFPAY | LOC: MRI 3T 12:29 | PROVIDERS: ATTENDING PHYSICIAN Physician Assistant Medical; FAMILY PHYSICIAN Internal Medicine Geriatric Medicine | DX: D32.9 Benign neoplasm of meninges, unspecified (principal) | CPT/HCPCS: 70553; A9575 ==

== ENCOUNTER → 2025-01-09 12:40 | Outpatient (REF) | payer OTHER, SELFPAY | LOC: RAD 12:40 | PROVIDERS: ATTENDING PHYSICIAN Internal Medicine Geriatric Medicine | DX: Z78.0 Asymptomatic menopausal state (principal) | CPT/HCPCS: 77080 ==

== ENCOUNTER → 2025-02-01 11:43 | Outpatient (REF) | payer OTHER, SELFPAY ==
[2025-02-01 13:04] LABS: ALT (SGPT) 22 U/L (0-35); AST (SGOT) 30 U/L (14-36); Albumin 5.0 g/dl (3.5-5.0); Alkaline Phosphatase 65 U/L (38-126); Blood Urea Nitrogen 21 mg/dl (7-17); Calcium 9.8 mg/dl (8.4-10.2); Carbon Dioxide 27 mmol/L (22-30); Chloride 104 mmol/L (98-107); Glucose 98 mg/dl (70-99); HDL Cholesterol 75 mg/dl; LDL Cholesterol, Calculated 95 mg/dl; Potassium 4.3 mmol/L (3.5-5.1); Sodium 140 mmol/L (135-145); Total Protein 7.9 g/dl (6.3-8.2); Very Low Density Lipoprotein 14 mg/dl (0-30); eGFR > 60.00
[2025-02-01 13:22] LABS: Vitamin D, 25-OH*** 51.0 ng/mL (30-80)
[2025-02-01 13:34] LABS: TSH 6.74 uIU/ml (0.47-4.68)
[2025-02-01 14:11] LABS: Folate > 20.0 ng/ml (2.76-20); Vitamin B12 842 pg/ml (239-931)
[2025-02-02 16:43] LABS: Lyme Antibody Screen, EIA Negative (Negative)
[2025-02-03 02:28] LABS: ANA, IgG Reflex to HEp-2 None Detected (None Detected)
== END ==
LOC: OLABPV 11:43
PROVIDERS: ATTENDING PHYSICIAN Internal Medicine Geriatric Medicine
DX: E78.2 Mixed hyperlipidemia (principal); I10 Essential (primary) hypertension; E55.9 Vitamin D deficiency, unspecified; L82.1 Other seborrheic keratosis; I70.0 Atherosclerosis of aorta; R10.9 Unspecified abdominal pain; I34.0 Nonrheumatic mitral (valve) insufficiency; I35.1 Nonrheumatic aortic (valve) insufficiency; Z13.89 Encounter for screening for other disorder; D32.9 Benign neoplasm of meninges, unspecified; R42 Dizziness and giddiness
CPT/HCPCS: 36415; 80053; 80061; 82306; 82607; 82746; 84443; 86038; 86618